=== PATIENT | male | born 1990 | race African-American/Black ===

== ENCOUNTER 2022-07-27 10:21 | Day surgery (SDC) | payer OTHER ==
[2022-07-27] VITALS (11 sets, daily range): BP systolic 103–134; BP diastolic 62–90; PULSE 60–84; TEMP 98.3
[~2022-07-27] VITALS: Ht 180.3 cm; Wt 98.6 kg
[2022-07-27 11:14] LABS: HEMATOCRIT 48.2 % (42.0-52.0); HEMOGLOBIN 16.6 g/dl (13.5-18.0); MEAN CELL VOLUME 86 fl (80.0-100.0); MEAN CORPUSCULAR HEMOGLOBIN 30 pg (27-31); MEAN CORPUSCULAR HGB CONC 34 g/dl (33.0-37.0); MEAN PLATELET VOLUME 9.9 fl (7.4-10.4); PLATELET COUNT 250 K/mm3 (130-400); RED BLOOD COUNT 5.61 M/mm3 (4.20-5.60); REDCELL DISTRIBUTION WIDTH-CV 11.9 % (11.5-14.5)
[2022-07-27 11:18] LABS: PROTHROMBIN TIME 11.1 SECONDS (9.7-12.8)
[2022-07-27 11:21] LABS: PARTIAL THROMBOPLASTIN TIME 29.7 SECONDS (26.0-37.0)
[2022-07-27 11:27] LABS: CALCIUM 10.3 mg/dL (8.4-10.2); CREATININE, serum 1.12 mg/dL (0.72-1.25); POTASSIUM 4.6 mmol/L (3.5-4.5)
[2022-07-27] MEDS ORDERED: NITROSTAT0.4 MG/TAB SL (11:27)
[2022-07-27] MEDS ORDERED: ROBAXIN 50500 MG/TAB PO (11:28)
[2022-07-27] MEDS ORDERED: TOPROL XL 25MG25 MG PO (11:29)
[2022-07-27] MEDS ORDERED: ASPIRIN E.C. 8181 MG PO (11:30)
[2022-07-27] MEDS ORDERED: LIPITOR 80MG80 MG PO (11:30)
[2022-07-27] MEDS ORDERED: PLAVIX 75MG TAB75 MG PO (11:31)
--- NOTE | 2022-07-27 12:45 | NUR ---
SEE MERGE FOR ALL MEDICATIONS, VITAL SIGNS AND INTERVENTIONS.
--- NOTE | 2022-07-27 13:53 | NUR ---
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 Pt is drowsy, but aousable to voice. sinus rhythm on monitor, o2 sats >92% on room air, unlabored resps. TR band to rt wrist, cms intact distal. call light in reach, at bs. I discuss poc with pt's . no questions at this time. wctm.
--- NOTE | 2022-07-27 16:49 | NUR ---
TR band was deflated with no problem. Site dressed with bandaid, folded 2x2 and coban. cms intact distal. Pt was treated with tylenol for a headache and that has improved. I have reviewed dc/fu and rx instructions with pt and his . Both deny any questions about the discharge plan. Pt is steady on his feet. I escorted pt to exit via wheelchair with his at 1636.
== END 2022-07-27 16:53 | disposition home or self-care (01) ==
LOC: COL.CAR 10:21
PROVIDERS: Internal Medicine Interventional Cardiology
DX: R07.89 Other chest pain (principal); R06.02 Shortness of breath; R94.31 Abnormal electrocardiogram [ECG] [EKG]; R94.39 Abnormal result of other cardiovascular function study; R00.2 Palpitations
CPT/HCPCS: C1769; C1887; J1644; J2250; J3010; Q9967

== ENCOUNTER → 2022-07-31 | Outpatient (CLI) | payer OTHER ==
[~2022-07-31] MED LIST: ASPIRIN E.C. 8181 MG PO; LIPITOR 80MG80 MG PO; NITROSTAT0.4 MG/TAB SL; PLAVIX 75MG TAB75 MG PO; ROBAXIN 50500 MG/TAB PO; TOPROL XL 25MG25 MG PO
== END ==
LOC: MHCPAIN 10:15
DX: M47.897 Other spondylosis, lumbosacral region (principal); M54.16 Radiculopathy, lumbar region; M51.36 Other intervertebral disc degeneration, lumbar region; I25.10 Atherosclerotic heart disease of native coronary artery without angina pectoris; Z79.01 Long term (current) use of anticoagulants
CPT/HCPCS: G0463

== ENCOUNTER → 2022-08-29 | Outpatient (CLI) | payer OTHER | LOC: MHCPAIN 09:10 | DX: M47.897 Other spondylosis, lumbosacral region (principal); M54.16 Radiculopathy, lumbar region; M51.36 Other intervertebral disc degeneration, lumbar region; I25.10 Atherosclerotic heart disease of native coronary artery without angina pectoris | CPT/HCPCS: G0463 ==

== ENCOUNTER 2022-09-11 00:12 | Observation (INO) | payer OTHER ==
[~2022-09-11] VITALS: Ht 180.3 cm; Wt 103.3 kg
[2022-09-11] VITALS (11 sets, daily range): BP systolic 93–126; BP diastolic 42–71; PULSE 67–122; TEMP 97.6–98.5
[2022-09-11 00:42] LABS: BASO % 0.3 % (0.0-2.0); EOS % 0.2 % (0.0-4.0); GRAN # 8.9 K/mm3 (1.4-6.5); GRAN % 77.7 % (42.2-75.2); HEMATOCRIT 44.5 % (42.0-52.0); HEMOGLOBIN 15.3 g/dl (13.5-18.0); LYMPH # 2.1 K/mm3 (1.2-3.4); LYMPH % 18.6 % (20.0-51.0); MEAN CELL VOLUME 86 fl (80.0-100.0); MEAN CORPUSCULAR HEMOGLOBIN 30 pg (27-31); MEAN CORPUSCULAR HGB CONC 34 g/dl (33.0-37.0); MEAN PLATELET VOLUME 9.9 fl (7.4-10.4); MONO # 0.2 K/mm3 (0.1-0.6); MONO % 2.1 % (1.7-9.3); PLATELET COUNT 289 K/mm3 (130-400); RED BLOOD COUNT 5.19 M/mm3 (4.20-5.60); REDCELL DISTRIBUTION WIDTH-CV 11.9 % (11.5-14.5)
[2022-09-11] MEDS ORDERED: MOBIC15 MG PO (00:51)
[2022-09-11 00:57] LABS: ALANINE AMINOTRANSFERASE 101 U/L (0-55); ALBUMIN 4.3 gm/dL (3.5-5.0); ALKALINE PHOSPHATASE 55 U/L (40-150); ANION GAP 13 mmol/L (7-16); AST,SGOT 38 U/L (5-34); BILIRUBIN,TOTAL 0.3 mg/dL (0.2-1.2); BLOOD UREA NITROGEN 18 mg/dL (9-21); CARBON DIOXIDE 22 mmol/L (22-29); CHLORIDE 102 mmol/L (98-107); CREATININE, serum 1.36 mg/dL (0.72-1.25); GLUCOSE 264 mg/dL (70-99); LIPASE 48 U/L (8-78); POTASSIUM 4.4 mmol/L (3.5-4.5); SODIUM 137 mmol/L (136-145); TOTAL PROTEIN 8.1 gm/dL (6.2-8.1)
[2022-09-11 01:07] LABS: TROPONIN-I < 0.010 ng/mL (0.00-0.033)
[2022-09-11 01:08] LABS: PROTHROMBIN TIME 11.7 SECONDS (9.7-12.8)
--- NOTE | 2022-09-11 04:28 | NUR ---
Patient arrived to medical unit at approximately 0130. Alert and oriented, and able to make needs known. Denies having pain and discomfort. Peripheral INT to right AC. Heparin drip per orders, as well as IV fluids. Telemetry in place. Remains in A-fib, ranging from 90s-120s. Voices no questions, needs, or concerns at this time. In bed with call light within reach. at bedside.
--- NOTE | 2022-09-11 07:24 | NUR ---
PATIENT HR CURRENTLY 11 BPM. OCASSIONALY BUMPS UP ABOVE 120-130S, ESPECIALLY WITH ACTIVITY. PATIENT CURRENTLY RESTING IN BED. PATIETN STATED HE HAD SOME CHEST PAIN DURING THE NIGHT THAT COMES AND GOES, RATED A 6/10 TO THE CENTER OF THE CHEST AND RADIATES TOWARDS THE LEFT. PATIENTS CALL LIGHT WITHIN REACH, AT BEDSIDE.
[2022-09-11 08:43] LABS: BASO % 0.2 % (0.0-2.0); GRAN % 77.7 % (42.2-75.2); HEMATOCRIT 39.8 % (42.0-52.0); HEMOGLOBIN 14.1 g/dl (13.5-18.0); LYMPH # 2.2 K/mm3 (1.2-3.4); LYMPH % 14.4 % (20.0-51.0); MEAN CELL VOLUME 84 fl (80.0-100.0); MEAN CORPUSCULAR HEMOGLOBIN 30 pg (27-31); MEAN CORPUSCULAR HGB CONC 35 g/dl (33.0-37.0); MONO # 1.1 K/mm3 (0.1-0.6); MONO % 6.9 % (1.7-9.3); PLATELET COUNT 281 K/mm3 (130-400); RED BLOOD COUNT 4.76 M/mm3 (4.20-5.60); REDCELL DISTRIBUTION WIDTH-CV 11.7 % (11.5-14.5)
[2022-09-11 08:55] LABS: CALCIUM 9.6 mg/dL (8.4-10.2); CREATININE, serum 1.03 mg/dL (0.72-1.25); MAGNESIUM 1.8 mg/dL (1.6-2.6); POTASSIUM 4.2 mmol/L (3.5-4.5)
--- NOTE | 2022-09-11 09:07 | NUR ---
CRITICAL 1.27 XA LEVEL RECIEVED. HEPARIN DRIP STOPPED AT 0900, RECHECK ORDERED FOR 1100.
--- NOTE | 2022-09-11 10:17 | NUR ---
SW met with patient post rounding. Patients Maria Ines ([phone]) present at bedside. Patient is active duty . He utilizes [facility] for both PCP care and prescriptions. [facility] does not have a DPO[facility] established and does not wish to create one at this time. Patient will returning home once medically ready. Discharge plan: Home
--- NOTE | 2022-09-11 10:37 | NUR ---
Initial visit; Patient thanked Chaplian for coming by and offering comfort and prayer for healing. Template Cutter will keep patient in her prayers.
--- NOTE | 2022-09-11 16:35 | NUR ---
LOOP RECORDER IMPLANTED, NO ISSUES. PATIENT DENIES ANY NEEDS OR COMPLAINTS AT THIS TIME. DRESSING CDI, POST OP VITALS INITIATED.
[2022-09-11] MEDS ORDERED: ELIQUIS 5MG PO (16:43)
--- NOTE | 2022-09-11 16:45 | NUR ---
PATIENT GIVEN LOOP RECORDER IMPLANT CARD BY NURSERY ATTENDANT NURSE, STATED IT IS IN HIS WALLET NOW.
[2022-09-11] MEDS ORDERED: CORDARONE200 MG/TAB PO (16:46)
[2022-09-11] MEDS ORDERED: TOPROL XL 50MG50 MG PO (16:46)
--- NOTE | 2022-09-11 17:15 | NUR ---
PATIENT GIVEN DISCHARGE INSTRUCITONS AND EDUCATION. REVIEWED NEW MEDICATIONS WITH PATIENT WELL POST LOOP RECORDER DISCHARGE INSTRUCTIONS AND EDUCATION. PATIENT AWARE HE NEEDS 1 WEEK FOLLOW UP APT WITH CARDIOLOGY AND GIVEN CONTACT INFORMATION FOR [facility]EE KEEPER OFFICE. PATIENT ALSO AWARE OF PCP FOLLOW UP APT IN ONE WEEK. PATIENT STATED HE WILL CALL BOTH FOR APTS IN THE AM. IV AND TELE DISCONTINUED.
--- NOTE | 2022-09-11 17:20 | NUR ---
PATIENT CALLED HE WAS READY TO BE TAKEN DOWN FOR DISCHARGE, HOWEVER WHEN RN AND PCT WENT TO PATIENTS ROOM, LESS THAN TWO MINUTES AFTER, PATIENT AND WERE GONE FROM ROOM.
--- NOTE | 2022-09-11 19:20 | NUR ---
HOSPITALIST AND PA AWARE PATIENTS HR HAS BEEN ANYWHERE FROM HIGH 80S TO 120 BPM AT REST. CARDIOLOGY STATED EARLIER THEY ARE OK WITH PATIENT DISCHARGING HOME. PER HOSPITALIST, THEY SPOKE WITH CARDIOLOGY AND ARE OK WITH PATIENT TO DISCHARGE SINCE BP HAS NOT SUSTAINED GREATER THAN 120.
== END 2022-09-11 17:30 | disposition home or self-care (01) ==
LOC: COL.ER 00:12 → MEDICAL 00:50
PROVIDERS: Nurse Practitioner Primary Care; Student in an Organized Health Care Education/Training Program; ADMIT Internal Medicine
DX: I48.91 Unspecified atrial fibrillation (principal); D72.829 Elevated white blood cell count, unspecified; R07.9 Chest pain, unspecified; N17.9 Acute kidney failure, unspecified; R74.01 Elevation of levels of liver transaminase levels; R79.89 Other specified abnormal findings of blood chemistry; R73.03 Prediabetes
CPT/HCPCS: C1764; G0378; J0282; J1644; J7030; J7060